=== PATIENT | female | born 1955 | race Caucasian/White ===

== ENCOUNTER 2016-08-28 10:06 | Observation (INO) | payer OTHER ==
[~2016-08-28] VITALS: Ht 149.9 cm; Wt 88.8 kg
[~2016-08-28 10:06] MED LIST: ADVIL200 MG PO; ASPIRIN325 MG PO; CALCIUM PO; CALCIUM600 M1 PO; CARDIZEM CD240 MG PO; CEFTIN500 MG PO; CIPRO500 MG PO; CITRACAL + D E1 EACH PO; CLOPIDOGREL75 MG PO; CYMBALTA30 MG PO; CYMBALTA60 MG PO; DAILY MULTIVIT1 EAC4 PO; DAILY VITAMIN1 EAC4 PO; DONEPEZIL HCL10 MG PO; FLONASE16 G1 BOTH NARES; HYDROCODON-ACE1 EAC7 PO; HYDROXYZINE PAM25 MG; LASIX20 MG PO; LITE COAT ASPI325 M1 PO; LO-DOSE ASPIRIN81 M2 PO; MELOXICAM7.5 MG PO; NASONEX17 GM BOTH NARES; NATURAL BALANCE15 M1 BOTH EYES; NATURAL BALANCE15 ML BOTH EYES; PANTOPRAZOLE SO40 MG PO; PLAVIX75 MG PO; PRAVACHOL40 MG PO; PRAVASTATIN SOD40 MG PO; PREDNISONE2.5 MG PO; PROTONIX40 MG PO; RELPAX40 MG PO; SERTRALINE HCL50 MG PO; TERBINAFINE HC250 MG PO; TOPAMAX50 MG PO; TOPIRAMATE100 MG PO; TOPROL XL100 MG PO; TRAMADOL HCL50 MG PO; ULTRAM50 MG PO; XARELTO20 MG PO; ZEBUTAL 50-3251 EACH PO; ZOLPIDEM TART6.25 MG PO
[2016-08-28 11:20] LABS: EOSINOPHIL (%) 0 % (0-5); HEMATOCRIT 40.7 % (36.0-46.0); IMMATURE GRANULOCYTE (%) 0.4 % (0.0-0.7); IMMATURE GRANULOCYTE COUNT 0.1 K/uL; INSTRUMENT ABS NEUTROPHIL CT 12.2 K/uL; LYMPHOCYTE COUNT 0.8 K/uL (1.0-2.8); MCH 29.4 PG (29.0-34.0); MCHC 34.2 G/DL (30.0-36.0); MEAN PLAT.VOLUME 9.2 uM^3 (9.5-12.4); MONOCYTE (%) 2.6 % (3-12); MONOCYTE COUNT 0.4 K/uL (0-0.8); NEUTROPHIL (%) 91.3 % (45-76); NEUTROPHIL COUNT 12.2 K/uL (1.8-6.4); PLATELET COUNT 259 K/uL (156-360); RBC DIS.WIDTH-CV 12.9 % (11.8-14.6); RBC DIS.WIDTH-SD 40.2 % (39-53); RED BLOOD COUNT 4.73 M/uL (3.80-5.20); WHITE BLOOD COUNT 13.3 K/uL (4.1-10.2)
[2016-08-28 11:32] LABS: CHLORIDE 108 mEq/L (99-109); SODIUM 137 mEq/L (136-147)
[2016-08-28 11:35] LABS: GLUCOSE 141 mg/dL (70-99)
[2016-08-28 11:36] LABS: ANION GAP 10 MEQ/L (2-14); TOTAL BILIRUBIN 0.4 mg/dL (0.0-1.0)
[2016-08-28 11:38] LABS: ALKALINE PHOSPHATASE 105 IU/L (3-129); GFR ESTIMATE (CALCULATED) > 59 mL/min/
[2016-08-28 11:39] LABS: UREA NITROGEN (BUN) 16 mg/dL (9-23)
[2016-08-28 11:40] LABS: DIRECT BILIRUBIN 0.2 mg/dL (0.0-0.3)
[2016-08-28 11:42] LABS: LIPASE 8 U/L (1.0-51.0)
[2016-08-28 13:06] LABS: ADD MIUA? YES; BILIRUBIN NEGATIVE; BLOOD SMALL; COLOR YELLOW ((YELLOW)); GLUCOSE (STRIP) NEGATIVE; KETONES 20; LEUKOCYTES NEGATIVE; NITRITE NEGATIVE; PROTEIN (STRIP) 30; UROBILINOGEN 0.2 MG/DL (0.2-1.0)
[2016-08-28 13:28] LABS: BACTERIA NONE SEEN /HPF; EPITHELIAL CELLS 1+ /HPF; MUCUS TRACE /LPF; RED BLOOD CELLS 15-20 /HPF (0-5); UCUL ADDED? NO; WHITE BLOOD CELLS 0-5 /HPF (0-5)
[2016-08-28 13:42] LABS: SPECIFIC GRAVITY 1.052 (1.000-1.030)
[2016-08-28] MEDS ORDERED: NORCO 5/3251 TABLET PO (15:21)
[2016-08-28] MEDS ORDERED: CYANOCOBALAM1000 MCG PO (15:23)
[2016-08-28] MEDS ORDERED: OMEPRAZOLE40 M1 PO (15:23)
[2016-08-28] MEDS ORDERED: TYLENOL EXTRA500 MG PO (15:23)
[2016-08-28] MEDS ORDERED: CAPSAICIN57 GM TP (15:24)
[2016-08-28] MEDS ORDERED: IMODIUM A-D2 M2 PO (15:24)
[2016-08-28 16:20] VITALS: BP 141/69
[2016-08-28 20:00] VITALS: BP 142/75
[2016-08-29 00:30] VITALS: BP 130/73
[2016-08-29 04:30] VITALS: BP 138/77
[2016-08-29 05:52] LABS: MCH 29.7 PG (29.0-34.0); MCHC 34.1 G/DL (30.0-36.0); MCV 87.3 FL (83-99); MEAN PLAT.VOLUME 9.3 uM^3 (9.5-12.4); PLATELET COUNT 222 K/uL (156-360); RBC DIS.WIDTH-CV 13.4 % (11.8-14.6); RBC DIS.WIDTH-SD 42.5 % (39-53); RED BLOOD COUNT 4.24 M/uL (3.80-5.20)
[2016-08-29 06:35] LABS: ANION GAP 10 MEQ/L (2-14); CHLORIDE 105 MEQ/L (99-109); GFR ESTIMATE (CALCULATED) > 59 mL/min/; GLUCOSE 107 mg/dL (70-99); POTASSIUM 3.5 MEQ/L (3.7-5.4); SAMPLE HEMOLYSIS CHECK 0; SAMPLE ICTERIC CHECK 0; SAMPLE LIPEMIA CHECK 0; SODIUM 135 MEQ/L (136-147); UREA NITROGEN (BUN) 17 mg/dL (9-23)
[2016-08-29 07:28] VITALS: BP 112/72; BP 176/73
[2016-08-29 11:31] VITALS: BP 134/80
[2016-08-29] MEDS ORDERED: K-DUR20 MEQ PO (11:38)
[2016-08-29] MEDS ORDERED: ASPIR-LOW81 MG PO (15:11)
[2016-08-29 15:33] VITALS: BP 132/71
[2016-08-30 02:52] LABS: C DIFF TOXIN NEGATIVE (NEGATIVE)
[2016-08-30 02:58] LABS: PROBE CHECK PASS; SPECIMEN PROCESSING CONTROL PASS
== END 2016-08-29 16:52 | disposition home or self-care (01) ==
LOC: EME → EDBD 10:06 → EDOF 14:09 → 5WEST 16:05
PROVIDERS: Emergency Medicine; Internal Medicine
DX: G45.9 Transient cerebral ischemic attack, unspecified (principal); E86.0 Dehydration; R47.81 Slurred speech; E87.2 Acidosis; I48.91 Unspecified atrial fibrillation; R19.7 Diarrhea, unspecified; I10 Essential (primary) hypertension; I69.359 Hemiplegia and hemiparesis following cerebral infarction affecting unspecified side; E78.5 Hyperlipidemia, unspecified; F03.90 Unspecified dementia, unspecified severity, without behavioral disturbance, psychotic disturbance, mood disturbance, and anxiety; K21.9 Gastro-esophageal reflux disease without esophagitis; Z79.01 Long term (current) use of anticoagulants
CPT/HCPCS: 70450; 71020; 74177; 80048; 80076; 81003; 83690; 85025; 85027; 87493; 93005; 99281; 99285; G0378; G8987 GO CH; G8988 GO CH; G8989 GO CH; J2405; J7030